=== PATIENT | male | born 1950 | race Caucasian/White ===

== ENCOUNTER → 2018-12-07 | Outpatient (CLI) | payer OTHER ==
[~2018-12-07] MED LIST: LISINOPRIL5 MG PO; SYNTHROID25 MC1 PO
--- NOTE | 2018-12-07 16:12 | EKG ---
[place] [address] [facility] [place] [address] ELECTROCARDIOGRAM REPORT Name: JOYCE DAVENPORT Room #: [facility] [id number] Admission: 12/07/18 Attend Phys: Titi Marsh MD Discharge: Date of : 52 Report #: [id number] THIS REPORT FOR: //name// [facility] Test Date: 2018-12-07 Test Time: 14:59:09 Pat Name: JOYCE DAVENPORT Department: Room: Gender: M [employer]: SELENA : 1950 Requested By: Titi Marsh Order Number: [id number] MD: Octavio Nguyen Measurements Intervals [place] Rate: 70 P: 35 UT: 159 QRS: 24 QRSD: 144 T: -9 QT: 390 QTc: 421 Interpretive Statements Sinus rhythm Right bundle branch block Small inferior Q waves No previous ECG available for comparison Electronically Signed On 12-07-2018 16:12:02 [employer] by Octavio Nguyen [email or web address] <ELECTRONICALLY SIGNED> By: Octavio Nguyen MD, [facility] 12/07/18 1612 1459 1459 Octavio Nguyen MD, FACC /EPI
== END | disposition home or self-care (01) ==
LOC: LITH 14:27
DX: N20.1 Calculus of ureter (principal); I10 Essential (primary) hypertension; E78.00 Pure hypercholesterolemia, unspecified; Z90.49 Acquired absence of other specified parts of digestive tract; Z98.890 Other specified postprocedural states; Z79.899 Other long term (current) drug therapy